=== PATIENT | female | born 1960 | race American Indian/Alaskan Native ===

== ENCOUNTER 2020-10-26 03:01 | Emergency (ER) | payer MEDICAID ==
[2020-10-26 03:38] VITALS: BP 129/78
[2020-10-26 03:54] LABS: Basophils % (Auto) 0.2 % (0.0-1.8); Eosinophils % (Auto) 0.1 % (0.0-4.3); Hematocrit 32.5 % (30.3-42.9); Hemoglobin 11.3 gm/dl (10.1-14.3); Lymphocytes # (Auto) 1.3 K/mm3 (1.2-5.4); Lymphocytes % (Auto) 28.3 % (13.4-35.0); Mean Corpuscular HGB Conc 35 % (30-34); Mean Corpuscular Volume 107 fl (79-97); Monocytes # (Auto) 0.3 K/mm3 (0.0-0.8); Monocytes % (Auto) 5.9 % (0.0-7.3); Red Blood Count 3.05 M/mm3 (3.65-5.03); Red Cell Distribution Width 14.7 % (13.2-15.2)
[2020-10-26 03:56] LABS: Platelet Count 45 K/mm3 (140-440)
[2020-10-26 04:02] LABS: Blood Urea Nitrogen 7 mg/dL (7-17); Hemolysis Index 0
[2020-10-26 04:05] LABS: INR 1.59 (0.87-1.13)
[2020-10-26 04:07] LABS: BUN/Creatinine Ratio 10
[2020-10-26] MEDS ORDERED: POTASSIUM CHLORIDE ER 20 MEQ TAB PO ONE (04:18)
[2020-10-26] MEDS ORDERED: ALUM-MAG HYDROXIDE-SIMETHICONE 200-200-20MG/5ML ORAL LIQD 30 ML PO ONE (04:18)
--- NOTE | 2020-10-26 04:26 | Emergency Department Report ---
ED Female HPI - General Chief complaint: Vaginal Bleeding Stated complaint: VAGINAL BLEEDING Time Seen by Provider: 10/26/20 03:13 Source: patient, EMS Mode of arrival: Stretcher Limitations: No Limitations - History of Present Illness Initial comments: 60-year-old female, history of alcohol abuse, liver cirrhosis, presents to ED with vaginal bleeding x3 days. Patient states she has had spotting over the last 3 days. She denies any rectal bleeding. She denies any abdominal pain. Patient states that she recently underwent cervical and uterine biopsy and was told that she may have some bleeding afterward. Patient is unsure how long ago these biopsies took place. Patient denies being sexually active. She reports marijuana use, denies any other drug use. Patient reports she has been drinking tonight. MD Complaint: vaginal bleeding -: days(s) (3) Severity: mild Quality: other (Painless) Consistency: intermittent Improves with: none Worsens with: none Are you Now?: No Associated Symptoms: vaginal bleeding. denies: abdominal pain, nausea/vomiting - Related Data Sexually active: No Allergies Allergy/AdvReac Type Severity Reaction Status Date / Time lisinopril Allergy Rash Verified 10/26/20 03:37 ED Review of Systems ROS: Stated complaint: VAGINAL BLEEDING Other details as noted in HPI Comment: All other systems reviewed and negative Constitutional: denies: chills, fever Gastrointestinal: denies: abdominal pain, melena, hematochezia Genitourinary: other (Reports vaginal spotting) ED Past Medical Hx - Past Medical History Previous Medical History?: Yes Hx Hypertension: Yes Additional medical history: Liver disease - Surgical History Past Surgical History?: No ED Physical Exam - General Limitations: No Limitations General appearance: alert, in no apparent distress - Head Head exam: Present: atraumatic, normocephalic - Eye Eye exam: Present: normal appearance, EOMI - ENT ENT exam: Present: mucous membranes moist - Neck Neck exam: Present: normal inspection - Respiratory Respiratory exam: Present: normal lung sounds bilaterally. Absent: respiratory distress - Cardiovascular Cardiovascular Exam: Present: regular rate, normal rhythm - GI/Abdominal GI/Abdominal exam: Present: soft. Absent: distended, tenderness - Rectal Rectal exam: Present: heme (+) stool - External exam: Present: normal external exam Speculum exam: Present: other (Scant vaginal bleeding with dark colored area on what may be patient's cervix) - Extremities Exam Extremities exam: Present: normal inspection - Neurological Exam Neurological exam: Present: alert, oriented X3 - Psychiatric Psychiatric exam: Present: normal affect, normal mood - Skin Skin exam: Present: warm, dry, intact, normal color ED Course Vital Signs 10/26/20 03:37 Temperature 98.5 F Pulse Rate 104 H Respiratory 20 Rate Blood Pressure 129/78 [Left] O2 Sat by Pulse 100 Oximetry ED Medical Decision Making - Lab Data Result diagrams: 10/26/20 03:27 10/26/20 03:27 - Medical Decision Making 60-year-old female, history of chronic alcohol abuse, liver cirrhosis, presents to ED with report of spotty vaginal bleeding, intermittent over the last 3 days. On pelvic exam, patient appears to have some friable tissue that is bleeding mildly. I also did a rectal exam, which was guaiac positive with maroon-colored stool. No bowel movements here in the ED. Hemoglobin is normal at 11.3. Patient does not require transfusion at this time. Hepatic panel is consistent with patient's known liver cirrhosis. Patient is likely tachycardic secondary to her alcohol intoxication. Blood pressure is stable. Patient has been advised to follow-up with her lamp cleaner, who is at [place], and her hvac commercial salesperson who is at [facility]. Critical care attestation.: If time is entered above; I have spent that time in minutes in the direct care of this critically ill patient, excluding procedure time. ED Disposition Clinical Impression: Vaginal bleeding, GI bleed Disposition: TO HOME OR SELFCARE Is pt being admited?: No Condition: Stable Instructions: Abnormal Uterine Bleeding, Gastrointestinal Bleeding Referrals: PRIMARY CARE, [Primary Care Provider] - 2-3 Days
[2020-10-26] MEDS ORDERED: ONDANSETRON 4 MG/2 ML INJ IV ONE (05:32)
[2020-10-26 05:34] LABS: Albumin 3.9 g/dL (3.9-5)
== END 2020-10-26 06:36 | disposition home or self-care (01) ==
LOC: ED 03:01
DX: N93.9 Abnormal uterine and vaginal bleeding, unspecified (principal); K92.2 Gastrointestinal hemorrhage, unspecified; K76.9 Liver disease, unspecified; I10 Essential (primary) hypertension; T46.4X5A Adverse effect of angiotensin-converting-enzyme inhibitors, initial encounter
CPT/HCPCS: 36415; 80048; 80076; 85025; 85610; 85730; 87210; 87591; 96374; 99284; J2405; 99283